=== PATIENT | male | born 1955 | race Caucasian/White ===

== ENCOUNTER 2016-09-20 00:02 | Emergency (ER) | payer OTHER, BC ==
[2016-09-20 00:05] VITALS: BP 112/64; PULSE 79; TEMP 98.9; BMI 31.8
--- NOTE | 2016-09-20 00:09 | PDOC ---
History of Present Illness - General Chief Complaint: Redness To Affected Area Stated Complaint: RT HAND REDNESS Time Seen by Provider: 09/20/16 00:07 History Source: Patient Exam Limitations: No Limitations - History of Present Illness Initial Comments: 09/20/16 00:22 This is a 61-year-old male who comes in complaining of a questionable spider bite on his right hand ring finger. Patient said he put his hand into a box in the basement and felt acute onset of a burning type pain to his hand his finger. Patient said over the next hour his finger became red and swollen and he came in for evaluation after taking an antihistamine. While here in the emergency room during the last hour after taking an antihistamine the symptoms seem to have not progressed but I have not gotten any better either. Patient said the pain is better. PAST MEDICAL HISTORY: no significant history PAST SURGICAL HISTORY: no significant history FAMILY HISTORY: no pertinant history SOCIAL HISTORY: Pt lives with family and is employed. MEDICATIONS: reviewed ALLERGIES: As per nursing notes Review of Systems General: No fevers or chills, no weakness, no weight loss HEENT: No change in vision. No sore throat,. No ear pain CardioVascular: No chest pain or shortness of breath Respiratory:No cough, or wheezing. Gastrointestinal: no nausea, vomitting, diarrhea or constipation, No rectal bleeding Genitourinary: No dysuria, hematuria, or frequency Musculoskeletal: Right hand ring finger spider bite Neurologic: No headache, vertigo, dizziness or loss of consciousness Psychiatric: nor depression Skin: No rashes or easy bruising Endocrine: no increased thirst or abnormal weight change Allergic: no skin or latex allergy All other systems reviewed and normal GENERAL: The patient is awake, alert, and fully oriented, in no acute distress. HEAD: Normal with no signs of trauma. EYES: Pupils equal, round and reactive to light, extraocular movements intact, sclera anicteric, conjunctiva clear. EXTREMITIES: Normal range of motion, no edema. Ring finger of right hand: There is an area that appears to be a bite with surrounding erythema and swelling of the tissues. Total area involved has a diameter of approximately 1 inch. There is full range of motion of the finger and the neurovascular is intact. NEUROLOGICAL: Normal speech, normal gait. PSYCH: Normal mood, normal affect. SKIN: Warm, Dry, normal turgor, no rashes or lesions noted. Assessment and plan: This is a 61-year-old male who comes in complaining of a spider bite to his right ring finger. Patient took an antihistamine which seems to be helping and has halted the progression of the swelling and redness. Patient was reassured that at this point there is nothing more to do he should keep an eye on it overnight and continue to take the antihistamine for at least 24 hours and return or follow-up with his doctor if symptoms get significantly worse. Past History - Past Medical History Allergies/Adverse Reactions: Allergies Allergy/AdvReac Type Severity Reaction Status Date / Time No Known Allergies Allergy Verified 04/07/14 16:22 Home Medications: Ambulatory Orders Levothyroxine [Synthroid -] 175 mcg PO DAILY 10/28/11 Quetiapine Fumarate [Seroquel -] 100 mg PO HS 10/28/11 Simvastatin 20 mg PO DAILY 10/28/11 Clonazepam [Klonopin] 1 mg PO HS 04/07/14 Fluoxetine HCl [Prozac -] 40 mg PO DAILY 04/07/14 Ipratropium [place] [Atrovent Hfa] 12.9 gm IH QID PRN #1 hfa.aer.ad 04/07/14 [place] Carbonate [Eskalith -] 300 mg PO HS 04/07/14 Montelukast Na [Singulair -] 10 mg PO HS #30 tablet 04/07/14 Trazodone HCl 100 mg PO DAILY 09/20/16 Asthma: Yes Hypercholesterolemia: Yes ( ) Psychiatric Problems: Yes ( bipolar disorder ) Thyroid Disease: Yes - Psycho/Social/Smoking Cessation Hx Anxiety: No Suicidal Ideation: No Smoking Status: No Smoking History: Current every day smoker Years of Tobacco Use: 35 Have you smoked in the past 12 months: Yes Number of Cigarettes Smoked Daily: 20 Information on smoking cessation initiated: No 'Breaking Loose' booklet given: 04/07/14 Hx Alcohol Use: Yes (OCCASIONAL) *Physical Exam - Vital Signs Last Vital Signs Temp Pulse Resp BP Pulse Ox 98.9 F 79 16 112/64 100 09/20/16 00:04 09/20/16 00:04 09/20/16 00:04 09/20/16 00:04 09/20/16 00:04 *DC/Admit/Observation/Transfer Diagnosis at time of Disposition: Spider bite Qualifiers: Encounter type: initial encounter Injury intent: accidental or unintentional Qualified Code(s): T63.301A - Toxic effect of unspecified spider venom, accidental (unintentional), initial encounter - Discharge Dispostion Disposition: HOME Condition at time of disposition: Stable Admit: No - Patient Instructions Additional Instructions: Take an antihistamine Benadryl one tablet as often as every 4 hours for the next 24 hours. Return to the emergency department immediately with ANY new, persistent or worsening symptoms. Continue any medications as previously prescribed by your physician. You should follow up with your primary doctor as soon as possible regarding today's emergency department visit. . Please make sure your doctor reviews the results of your emergency evaluation. Thank you for coming to the Emergency Department today for your care. It was a pleasure to see you today. Please note that your evaluation is INCOMPLETE until you follow-up with your doctor.
== END 2016-09-20 00:29 | disposition home or self-care (01) ==
LOC: FER 00:02
DX: T63.301A Toxic effect of unspecified spider venom, accidental (unintentional), initial encounter (principal); Y93.89 Activity, other specified; Y92.9 Unspecified place or not applicable; F17.210 Nicotine dependence, cigarettes, uncomplicated; J45.909 Unspecified asthma, uncomplicated; E07.9 Disorder of thyroid, unspecified; F31.9 Bipolar disorder, unspecified
CPT/HCPCS: 99281-25

== ENCOUNTER 2017-04-03 00:12 | Emergency (ER) | payer OTHER, BC ==
[2017-04-03 00:38] VITALS: BP 105/66; PULSE 82; TEMP 97.2; BMI 29.0
--- NOTE | 2017-04-03 00:59 | PDOC ---
History of Present Illness - General Chief Complaint: Palpitations Stated Complaint: PALPITATIONS Time Seen by Provider: 04/03/17 00:17 History Source: Patient Exam Limitations: No Limitations - History of Present Illness Initial Comments: 04/03/17 00:53 61 year old male with history of bipolar disorder, psoriasis, psoriatic arthritis, lyme's disease presents with for palpitations x ~10 days. The patient had reported intermittent palpitations that would come and go for 10 days. Stated that he would feel the pulsations radiating down to his abdomen. Does not endores any abdominal tenderness or syncope. He started to note that this was becoming increasingly more frequent. The patient had visited his policy director at [facility] where he had an ECG and echo performed, which according to the patient was unremarkable. The patient is scheduled for an outpatient holter and stress test as well. The patient was concerned for abdominal aortic aneurysm after he had spoken to his son (who is an ICU nurse), and the patient called his policy director who advised the patient to make a follow up appointment with him or to go to the ER. Denies family history of aortic aneurysm. Past History - Past Medical History Allergies/Adverse Reactions: Allergies Allergy/AdvReac Type Severity Reaction Status Date / Time No Known Allergies Allergy Verified 04/07/14 16:22 Home Medications: Ambulatory Orders Levothyroxine [Synthroid -] 150 mcg PO DAILY 10/28/11 Quetiapine Fumarate [Seroquel -] 100 mg PO HS 10/28/11 Clonazepam [Klonopin] 1 mg PO HS 04/07/14 Fluoxetine HCl [Prozac -] 40 mg PO DAILY 04/07/14 Ipratropium [place] [Atrovent Hfa] 12.9 gm IH QID PRN #1 hfa.aer.ad 04/07/14 [place] Carbonate [Eskalith -] 300 mg PO HS 04/07/14 Trazodone HCl 100 mg PO DAILY 09/20/16 Aspirin [Aspirin EC] 81 mg PO DAILY 04/03/17 Mometasone/Formoterol [Dulera 200 Mcg/5 Mcg Inhaler] 2 inh IH BID 04/03/17 Asthma: Yes COPD: No Hypercholesterolemia: Yes ( ) Psychiatric Problems: Yes ( bipolar disorder ) Thyroid Disease: Yes Other medical history: KNEE PROBLEMS - Suicide/Smoking/Psychosocial Hx Smoking Status: No Smoking History: Current every day smoker Years of Tobacco Use: 35 Have you smoked in the past 12 months: Yes Number of Cigarettes Smoked Daily: 20 Information on smoking cessation initiated: Yes 'Breaking Loose' booklet given: 04/03/17 Hx Alcohol Use: Yes (OCCASIONAL) Review of Systems - Review of Systems Able to Perform ROS?: Yes Comments:: 04/03/17 00:55 GENERAL/CONSTITUTIONAL: No fever, weakness. HEAD, EYES, EARS, NOSE AND THROAT: No change in vision. No ear pain or discharge. No sore throat. CARDIOVASCULAR: No chest pain or shortness of breath. + intermittent palpitations RESPIRATORY: No cough, wheezing, or hemoptysis. GASTROINTESTINAL: No abdominal pain, nausea, vomiting, diarrhea, or decreased PO intolerance. GENITOURINARY: No dysuria, frequency, or change in urination. MUSCULOSKELETAL: No joint or muscle swelling or pain. No neck or back pain. SKIN: No rash NEUROLOGIC: No headache, vertigo, loss of consciousness, or change in strength/ sensation. ENDOCRINE: No increased thirst. No abnormal weight change. HEMATOLOGIC/LYMPHATIC: No anemia, easy bleeding, or history of blood clots. ALLERGIC/IMMUNOLOGIC: No hives or skin allergy. *Physical Exam - Vital Signs Last Vital Signs Temp Pulse Resp BP Pulse Ox 97.2 F L 82 16 105/66 99 04/03/17 00:19 04/03/17 00:19 04/03/17 00:19 04/03/17 00:19 04/03/17 00:19 - Physical Exam Comments: 04/03/17 00:56 GENERAL: Awake, alert, and fully oriented, in no acute distress. HEAD: No signs of trauma EYES: PERRLA, EOMI, sclera anicteric, conjunctiva clear ENT: Auricles normal inspection, hearing grossly normal, nares patent, oropharynx clear without exudates. NECK: Normal ROM, supple, no lymphadenopathy, JVD, or masses LUNGS: Breath sounds equal, clear to auscultation bilaterally. No wheezes, and no crackles HEART: Regular rate and rhythm, normal S1 and S2, no murmurs, rubs or gallops ABDOMEN: Soft, nontender. No guarding, no rebound. No masses EXTREMITIES: Normal range of motion, no edema. No clubbing or cyanosis. No cords, erythema, or tenderness NEUROLOGICAL: Cranial nerves II through XII grossly intact. Normal speech, normal gait SKIN: Chronic psoriasis lesions on abdomen and upper extremities Heart Score/ECG Review #1 ECG reviewed & interpreted by me at: 01:00 04/03/17 01:00 NSR 84, no std/erna, normal axis, normal intervals, QTC 463 msec. normal ECG Medical Decision Making - Medical Decision Making 04/03/17 00:57 Vital Signs Temp Pulse Resp BP Pulse Ox 97.2 F L 82 16 105/66 99 04/03/17 00:19 04/03/17 00:19 04/03/17 00:19 04/03/17 00:19 04/03/17 00:19 The patient has been having intermittent palpitations that is currently under evaluation by a policy director. The patient is concerned for AAA. However, he has no abdominal tenderness or pain. No family history. Currently, even if there is a AAA, I do not suspect rupture at this time. I attempted a bedside abdominal ultrasound, but given poor resolution of GE abdominal ultrasound, study was technically limited. I agree with the patient that he should continue his outpatient follow up and that an outpatient abdominal ultrasound to evaluate the aorta is very reasonable. Will obtain an ECG and if unremarkable, will let the patient call his policy director later today for outpatient follow up. Return precautions given including abdominal pain. 04/03/17 01:01 ECG is normal. I discussed the physical exam findings, ancillary test results and final diagnoses with the patient. I answered all of the patient's questions. The patient was satisfied with the care received and felt comfortable with the discharge plan and treatment plan. The patient will call their primary care physician within 24 hours to arrange follow-up and will return to the Emergency Department with any new, persistant or worsening symptoms. *DC/Admit/Observation/Transfer Diagnosis at time of Disposition: Palpitations - Discharge Dispostion Disposition: HOME Condition at time of disposition: Stable Admit: No - Referrals Referrals: Delgado Medina [Primary Care Provider] - - Patient Instructions Printed Discharge Instructions: DI for Palpitations Additional Instructions: Please call your policy director today and schedule a follow up. - Post Discharge Activity
--- NOTE | 2017-04-04 13:36 | EKG ---
Test Reason : Blood Pressure : / mmHG Vent. Rate : 084 BPM Atrial Rate : 084 BPM P-R Int : 156 ms QRS Dur : 078 ms QT Int : 392 ms P-R-T Axes : 039 039 044 degrees QTc Int : 463 ms NORMAL SINUS RHYTHM NO PREVIOUS ECGS AVAILABLE Confirmed by GENE LAMBERT MD ([id number]) on 04/04/2017 1:36:50 PM Referred By: Confirmed By:GENE LAMBERT MD
== END 2017-04-03 01:04 | disposition home or self-care (01) ==
LOC: FER 00:12
DX: R00.2 Palpitations (principal); F17.210 Nicotine dependence, cigarettes, uncomplicated; J45.909 Unspecified asthma, uncomplicated; F31.9 Bipolar disorder, unspecified
CPT/HCPCS: 93005; 99282-25

== ENCOUNTER 2018-10-23 20:07 | Emergency (ER) | payer OTHER, BC ==
--- NOTE | 2018-10-23 20:33 | PDOC ---
History of Present Illness - General History Source: Patient, Family Exam Limitations: No Limitations - History of Present Illness Initial Comments: 10/23/18 21:12 63 yo M pmh psorasis and lyme disease (residual arthritis) presents with two weeks of LLE pain and itching, mainly ankles and lower legs with some involvement of the upper leg. Pt was previously hospitalized for LLE cellulitis in 03/2018 treated with IV vanc and unasyn. Patient has been taking dicloxacillin on and off for a 2 weeks without symptomatic relief. Denies new fevers or chills but does endorse chronic chills. pmh as above, bipolar meds: see chart NKDA heavy etoh use: 1-1.5 pints of vodka a day <Doc Saeed - Last Filed: 10/23/18 22:01> <Stella Teague - Last Filed: 10/23/18 23:00> - General Chief Complaint: Redness To Affected Area Stated Complaint: PSORIASIS Time Seen by Provider: 10/23/18 20:29 Past History - Past Medical History Asthma: Yes COPD: No Hypercholesterolemia: Yes ( ) Psychiatric Problems: Yes ( bipolar disorder ) Thyroid Disease: Yes - Suicide/Smoking/Psychosocial Hx Smoking Status: No Smoking History: Current every day smoker Years of Tobacco Use: 35 Have you smoked in the past 12 months: Yes Number of Cigarettes Smoked Daily: 20 'Breaking Loose' booklet given: 04/03/17 Hx Alcohol Use: Yes (OCCASIONAL) <Doc Saeed - Last Filed: 10/23/18 22:01> <Stella Teague - Last Filed: 10/23/18 23:00> - Past Medical History Allergies/Adverse Reactions: Allergies Allergy/AdvReac Type Severity Reaction Status Date / Time No Known Allergies Allergy Verified 10/23/18 20:26 Home Medications: Ambulatory Orders Clonazepam [Klonopin] 1 mg PO HS 04/07/14 Fluoxetine HCl [Prozac -] 20 mg PO DAILY 04/07/14 Ipratropium [place] [Atrovent Hfa] 12.9 gm IH QID PRN #1 hfa.aer.ad 04/07/14 traZODone HCL [Trazodone HCl] 100 mg PO DAILY 09/20/16 Mometasone/Formoterol [Dulera 200 Mcg/5 Mcg Inhaler] 1 inh IH BID 04/03/17 Clindamycin HCl [Cleocin HCl] 300 mg PO QID #28 capsule 10/23/18 Dicloxacillin Sodium 500 mg PO QID 10/23/18 Diphenhydramine [Benadryl -] 50 mg PO BID PRN 10/23/18 Levothyroxine Sodium 137 mcg PO DAILY 10/23/18 [place] Carbonate [Eskalith -] 300 mg PO DAILY 10/23/18 hydrOXYzine HCL [Atarax -] 25 mg PO TID PRN #15 tablet 10/23/18 Review of Systems - Review of Systems Able to Perform ROS?: Yes Is the patient limited Croatian proficient: No Constitutional: Yes: Chills (chronic). No: Symptoms Reported, Fever HEENTM: No: Symptoms Reported, See HPI, Eye Pain, Blurred Vision, Tearing, Recent change in vision, Double Vision, Cataracts, Ear Pain, Ocular Prothesis, Ear Discharge, Nose Pain, Nose Congestion, Tinnitus, Nose Bleeding, Hearing Loss , Throat Pain, Throat Swelling, Mouth Pain, Dental Problems, Difficulty Swallowing, Mouth Swelling, Other Respiratory: No: Symptoms reported, See HPI, Cough, Orthopnea, Shortness of Breath, SOB with Exertion, SOB at Rest, Stridor, Wheezing, Productive cough, Hemoptysis, Other Cardiac (ROS): No: Symptoms Reported, See HPI, Chest Pain, Edema, Irregular Heart Rate, Lightheadedness, Palpitations, Syncope, Chest Tightness, Other ABD/GI: No: Symptoms Reported, See HPI, Abdominal Distended, Abd. Pain w/ defecation, Blood Streaked Bowels, Constipated, Diarrhea, Difficulty Swallowing , Nausea, Poor Appetite, Poor Fluid Intake, Rectal Bleeding, Vomiting, Indigestion, Abdominal cramping, Tarry Stools, Other : No: Symptoms Reported, See HPI, Burning, Dysuria, Discharge, Frequency, Flank Pain, Hematuria, Incontinence, Pain, Urgency, Testicular Mass, Testicular Swelling, Lesions, Testicular Pain, Other Integumentary: No: Symptoms Reported, See HPI, Bruising, Change in Color, Change in Hair/Nails, Dryness, Erythema, Flushing, Lesions, Lumps, Pallor, Pruritus, Rash, Sweating, Other Neurological: No: Symptoms reported, See HPI, Headache, Numbness, Paresthesia, Pre-Existing Deficit, Seizure, Tingling, Tremors, Weakness, Unsteady Gait, Ataxia, Dizziness, Other Endocrine: Yes: Intolerance to Cold (chronic, endorses with chills. has house at 80F. ). No: Excessive Sweating, Flushing, Intolerance to Heat, Increased Hunger, Increased Thirst, Increased Urine, Unexplained Weight Gain, Unexplained Weight Loss, Change in Weight, Other Hematologic/Lymphatic: No: Symptoms Reported, See HPI, Anemia, Blood Clots, Easy Bleeding, Easy Bruising, Bleeding Diathesis, Lymph Node Abnormalities, Swollen Glands, Other <Doc Saeed - Last Filed: 10/23/18 22:01> *Physical Exam - Physical Exam Comments: 10/23/18 21:20 GEN: Resting in bed w/ mild discomfort HEENT: NC/AT, EOMI, PERRLA, CN II-XII intact. Moist mucous membranes. CV: S1/S2, RRR, no m/r/g LUNG: CTAB, no wheezes, crackles, rales, rhonchi. GI: soft, ndnt, +BS. SKIN: extensive psorasis throughout body especially of the lower legs where there are multiple open wounds without purulence or drainage. <Doc Saeed - Last Filed: 10/23/18 22:01> - Vital Signs Last Vital Signs Temp Pulse Resp BP Pulse Ox 98.6 F 86 20 148/88 100 10/23/18 20:08 10/23/18 20:08 10/23/18 20:08 10/23/18 20:08 10/23/18 20:08 <Stella Teague - Last Filed: 10/23/18 23:00> ED Treatment Course - LABORATORY CBC & Chemistry Diagram: 10/23/18 21:00 10/23/18 21:00 <Doc Saeed - Last Filed: 10/23/18 22:01> - LABORATORY CBC & Chemistry Diagram: 10/23/18 21:00 10/23/18 21:00 - ADDITIONAL ORDERS Additional order review: Laboratory Results 10/23/18 10/23/18 10/23/18 21:00 21:00 21:00 Sodium 131 L Potassium 4.0 Chloride 97 L Carbon Dioxide 19 L Anion Gap 15 BUN 12.0 Creatinine 1.0 Est GFR (CKD-EPI)AfAm 93.73 Est GFR (CKD-EPI)NonAf 80.87 Random Glucose 91 Lactic Acid 4.3 H* Calcium 9.1 Total Bilirubin 1.3 H AST 70 H ALT 55 Alkaline Phosphatase 74 Total Protein 7.3 Albumin 3.8 Alcohol, Quantitative 178.4 H 10/23/18 21:00 RBC 4.36 MCV 107.7 H MCHC 33.2 RDW 14.1 D MPV 7.7 Neutrophils % 74.8 Lymphocytes % 16.8 D Monocytes % 6.8 Eosinophils % 0.9 Basophils % 0.7 - Medications Given in the ED: ED Medications Discontinued Medications Generic Name Dose Route Start Last Admin Trade Name Lisa PRN Reason Stop Dose Admin Vancomycin HCl 1,000 mg 10/23/18 21:25 10/23/18 21:35 Vancomycin (Pre-Docked) IVPB 10/23/18 21:26 1,000 mg ONCE ONE Administration Protocol <Stella Teague - Last Filed: 10/23/18 23:00> Medical Decision Making - Medical Decision Making 10/23/18 21:25 63 yo M with extensive psorasis presents with 2 weeks of LLE pain and itching. ROS neg. Has been taking dicloxacillin on/off. Exam significant for extensive psorasis worse at the lower legs with open wounds that are without purulence or drainage. Pt previously admitted for LLE cellulitis treated with IV vancomycin and unasyn. Cellulitis - CBC, CMP, BCX - IV, Vanc - admit 10/23/18 22:02 signed out to attending. <Doc Saeed - Last Filed: 10/23/18 22:01> *DC/Admit/Observation/Transfer <Doc Saeed - Last Filed: 10/23/18 22:01> <Stella Teague - Last Filed: 10/23/18 23:00> Diagnosis at time of Disposition: Cellulitis Qualifiers: Site of cellulitis: extremity Site of cellulitis of extremity: lower extremity Laterality: left Qualified Code(s): L03.116 - Cellulitis of left lower limb - Discharge Dispostion Disposition: AGAINST MEDICAL ADVICE - Prescriptions Prescriptions: Clindamycin HCl [Cleocin HCl] 300 mg PO QID #28 capsule - Referrals Referrals: Delgado Medina [Primary Care Provider] - - Patient Instructions Printed Discharge Instructions: Cellulitis Additional Instructions: stop dicloxacillin begin clindamycin 300mg 4 X a day for 1 week Atarax 25 mg up to 3 X a day as needed for itching return to ER if you have worsening pain/swelling or develop fever - Post Discharge Activity
[2018-10-23 20:49] VITALS: BP 148/88; PULSE 86; TEMP 98.6; BMI 29.0
[2018-10-23] MEDS ORDERED: VANCOMYCIN 1 GM in D5W (PRE-DOCKED) 1,000 MG/250 ML IVPB ONE (21:25)
[2018-10-23] MEDS ORDERED: VANCOMYCIN 1,000 MG VIAL (RESTRICTED TO ID ONLY) ONE (21:30)
[2018-10-23 21:40] LABS: BASO % 0.7 % (0-2.0); EOS % 0.9 % (0-4.5); HEMATOCRIT 46.9 % (35.4-49); HEMOGLOBIN 15.6 GM/dl (11.7-16.9); LYMPH % 16.8 % (8-40); MCH 35.7 pg (25.7-33.7); MCHC 33.2 g/dl (32.0-35.9); MEAN CELL VOLUME 107.7 fl (80-96); MEAN PLT VOLUME 7.7 fl (7.5-11.1); MONO % 6.8 % (3.8-10.2); NEUT % 74.8 % (42.8-82.8); PLATELET COUNT 288 K/MM3 (134-434); RBC 4.36 M/mm3 (4.00-5.60); RDW 14.1 % (11.9-15.9); WHITE BLOOD COUNT 7.7 K/mm3 (4.0-10.8)
[2018-10-23 21:48] LABS: ALBUMIN 3.8 g/dl (3.4-5.0); BILIRUBIN,TOTAL 1.3 mg/dl (0.2-1); CALCIUM 9.1 mg/dl (8.5-10); TOT PROT 7.3 g/dl (6.4-8.2)
--- NOTE | 2018-10-24 00:27 | PDOC ---
Documentation entered by Delgado Pettit SCRIBE, acting as scribe for Stella Teague MD. Stella Teague MD: This documentation has been prepared by the Wilver moreno Daniel, SCRIBE, under my direction and personally reviewed by me in its entirety. I confirm that the documentation accurately reflects all work, treatment, procedures, and medical decision making performed by me. Attending Attestation - Resident Resident Name: Doc Saeed - ED Attending Attestation I have performed the following: I have examined & evaluated the patient, The case was reviewed & discussed with the resident, I agree w/resident's findings & plan - HPI HPI: 10/23/18 21:07 The patient is a 63 year old male with a past medical history of psoriasis, lyme disease, bipolar disease, and arthritis here today for evaluation of left lower extremity pain and itching. The patient reports that he has been having left lower extremity pain and itching for the past 2 weeks (getting worse) for which he has been taking dicloxacillin intermittently. He notes a history of cellulitis in his left lower extremity for which he was admitted to [facility] where he was given IV antibiotics and discharged with oral antibiotics. He notes chronic unchanged chills. He also reports that he was in remission for his psoriasis earlier this year but relapsed. Patient denies headache, lightheadedness. Denies fever. Denies chest pain, shortness of breath. Denies nausea, vomiting, diarrhea, abdominal pain. Allergies: NKA Social history: Confirms pack a day tobacco use and pint a day alcohol use. Denies illicit drug use. PCP: Delgado Medina - Physicial Exam PE: 10/23/18 21:31 GENERAL: Awake, alert, and fully oriented, in no acute distress HEAD: No signs of trauma EYES: PERRLA, EOMI, sclera anicteric, conjunctiva clear ENT: Auricles normal inspection, hearing grossly normal, nares patent, oropharynx clear without exudates. Moist mucosa NECK: Normal ROM, supple, no lymphadenopathy, JVD, or masses LUNGS: Breath sounds equal, clear to auscultation bilaterally. No wheezes, and no crackles HEART: Regular rate and rhythm, normal S1 and S2, no murmurs, rubs or gallops ABDOMEN: Soft, nontender, normoactive bowel sounds. No guarding, no rebound. No masses EXTREMITIES: Normal range of motion, no edema. No clubbing or cyanosis. No cords, erythema, or tenderness NEUROLOGICAL: Cranial nerves II through XII grossly intact. Normal speech, normal gait SKIN: +scattered plaques on erythematous base on torso and upper extremities with confluent plaques on the bilateral lower extremities which are surrounded by erythema and moderate edema. +3x4 cm open area on the left anterior ankle area which is tender to palpation with no fluctuance or discharge. Warm, Dry, normal turgor. - Medical Decision Making This 63-year-old man with a history of psoriasis/bipolar disorder/alcohol abuse presents with increased pain and swelling around psoriatic plaques of bilateral lower extremities. He has a history of cellulitis involving his legs in the past several months (hospitalized at [facility] in March, for IV antibiotics). He presents with "few week" history of increased pain and redness around psoriatic plaques of his lower extremities. He has been taking intermittent dicloxacillin; it is unclear whether he received this medication in a prescription from his PMD. 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 Exam as noted reveals tenderness/erythema/edema, especially in the lower portions of bilateral lower legs (left greater than right). Laboratory evaluation including CBC/chemistry profile/blood culture/lactic acid/ ethanol level drawn and IV access obtained. Vancomycin 1 g IV started empirically for treatment of presumed cellulitis of his lower extremities Laboratory evaluation is essentially normal except for: ethanol level (178 mg/dl ) and lactic acid (4.3) Because of his elevated lactic acid, the patient should be admitted for continued IV antibiotics, normal saline IV hydration and monitoring with repeat lactic acid planned. Patient refused admission and signed out AGAINST MEDICAL ADVICE. Although the patient was clearly advised that elevated lactic acid was highly suggestive of complicated infectious process, which should be at least initially treated with IV antibiotics, with risks for progressive sepsis, possible amputation and , he adamantly refused to be admitted for continued treatment. Clindamycin 300 mg every 6 hours will be prescribed and patient strongly advised to follow-up with his PMD over the next 2-3 days.
== END 2018-10-23 23:08 | disposition left against medical advice (07) ==
LOC: FER 20:07
DX: L03.116 Cellulitis of left lower limb (principal); L40.9 Psoriasis, unspecified; J45.909 Unspecified asthma, uncomplicated; F31.9 Bipolar disorder, unspecified; E78.00 Pure hypercholesterolemia, unspecified
CPT/HCPCS: 36415; 80053; 80307; 83605; 85025; 87040; 99284-25

== ENCOUNTER 2020-07-21 13:54 | Emergency (ER) | payer BC, OTHER ==
[2020-07-21 13:57] VITALS: BP 133/84; PULSE 89; TEMP 97.7; BMI 27.1
== END 2020-07-21 14:50 | disposition home or self-care (01) ==
LOC: FER 13:54
DX: H00.013 Hordeolum externum right eye, unspecified eyelid (principal)
CPT/HCPCS: 99283-25

== ENCOUNTER 2022-11-24 01:59 | Emergency (ER) | payer OTHER ==
[2022-11-24 02:10] VITALS: BP 175/95; PULSE 83; RESP 19; TEMP 99.3; BMI 24.5
[2022-11-24] MEDS ORDERED: MAGNESIUM CITRATE 300 ML BOTTLE PO ONE (04:59)
[2022-11-24] MEDS ORDERED: MAGNESIUM CITRATE 300 ML BOTTLE ONE (05:03)
== END 2022-11-24 05:27 | disposition home or self-care (01) ==
LOC: FER 01:59
DX: K59.00 Constipation, unspecified (principal)
CPT/HCPCS: 71046-TC-FY; 74019-TC-FY; 99283-25

== ENCOUNTER 2023-11-20 19:20 | Emergency (ER) | payer OTHER, BC ==
[2023-11-20 19:29] VITALS: BP 213/111; PULSE 106; RESP 24; TEMP 99.1; BMI 24.9
[2023-11-20] MEDS ORDERED: clonazePAM 0.5 MG TABLET ONE (19:41)
[2023-11-20] MEDS: clonazePAM 0.5 MG TABLET PO ONE (19:43)
[2023-11-20] MEDS ORDERED: LORazepam 0.5 MG TABLET ONE (19:46)
[2023-11-20] MEDS: LORazepam 1 MG TABLET PO ONE (19:48)
== END 2023-11-20 20:13 | disposition left against medical advice (07) ==
LOC: FER 19:20
DX: F41.9 Anxiety disorder, unspecified (principal)
CPT/HCPCS: 0241U-QW; 71046-TC-FY; 99284-25